=== PATIENT | male | born 1960 ===

== ENCOUNTER 2018-03-27 09:20 | Emergency (ER) | payer MEDICAID ==
[~2018-03-27] VITALS: Ht 177.8 cm; Wt 93.9 kg
[2018-03-27] MEDS ORDERED: ARTIFICIAL TEA3.5 G1 RIGHTEYE (11:12)
== END 2018-03-27 11:31 | disposition home or self-care (01) ==
LOC: ER 09:20
DX: B30.9 Viral conjunctivitis, unspecified (principal); F17.220 Nicotine dependence, chewing tobacco, uncomplicated
CPT/HCPCS: 70480; 99283-25